=== PATIENT | male | born 1940 | race Caucasian/White ===

== ENCOUNTER → 2018-04-20 | Outpatient (CLI) | payer MEDICARE ==
[~2018-04-20] MED LIST: ALLOPURINOL100 MG PO; ARICEPT5 MG PO; AZITHROMYCIN250 MG PO; BENZONATATE100 MG PO; CARBAMAZEPINE200 MG PO; DICYCLOMINE HCL10 MG PO; IBUPROFEN400 MG PO; OMEPRAZOLE40 MG PO; SIMVASTATIN20 MG PO; TYLENOL WITH C1 EACH PO
--- NOTE | 2018-04-20 15:07 | Diagnostic Imaging Report ---
Exam: SI joints, 3 views or less History: Sacroiliitis Comparison: KUB 04/09/2017 Findings: There is markedly decreased bone mineralization, which limits evaluation of bony structures.. No acute, displaced fracture or dislocation. Stable vertebroplasty changes at L3 and L4. Mild bilateral sacroiliac joint degenerative changes, with presence of small osteophytes in the left SI joint. No lytic lesions. Apparent ossification/fusion of the interspinous ligaments No abnormal soft tissue calcification or soft tissue defect. No soft tissue swelling. Impression: 1. Mild bilateral sacroiliac joint degenerative changes. 2. Ossification/fusion of the interspinous ligaments, which can be seen in ankylosing spondylitis. Signed by: Dr. Bliar Abarca M.D. on 04/20/2018 3:04 PM
== END ==
LOC: RAD 12:11
PROVIDERS: ATTEND Family Medicine
DX: M13.0 Polyarthritis, unspecified (principal); M46.1 Sacroiliitis, not elsewhere classified
CPT/HCPCS: 72200

== ENCOUNTER 2018-04-21 15:23 | Observation (INO) | payer MEDICARE ==
[~2018-04-21] VITALS: Ht 177.8 cm; Wt 79.4 kg
[2018-04-21] MEDS ORDERED: ASPIRIN 81 MG CHEW TAB PO ONE (16:00)
[2018-04-21 16:09] LABS: BASOPHILS % 0.4 % (0.0-1.0); EOSINOPHILS # (AUTO) 0.3 (0.0-0.4); EOSINOPHILS % 2.6 % (0.0-6.0); HEMATOCRIT 36.1 % (38.2-49.6); HEMOGLOBIN 12.4 g/dL (14.0-18.0); LYMPHOCYTES # (AUTO) 1.6 (1.0-3.2); LYMPHOCYTES % 16.2 % (18.0-39.1); MEAN CORPUSCULAR HEMOGLOBIN 30.6 pg (28-32); MEAN CORPUSCULAR HGB CONC 34.3 g/dL (31-35); MEAN CORPUSCULAR VOLUME 89.1 fL (81-99); MONOCYTES # (AUTO) 0.9 (0.2-0.8); MONOCYTES % 9.3 % (4.4-11.3); NEUTROPHILS # (AUTO) 7.2 (2.1-6.9); PLATELET COUNT 237 x10e3/uL (140-360); RED BLOOD COUNT 4.05 x10e6/uL (4.3-5.7); RED CELL DISTRIBUTION WIDTH 13.2 % (11.7-14.4)
[2018-04-21 16:28] LABS: ALANINE AMINOTRANSFERASE 28 IU/L (0-55); ALBUMIN 3.5 g/dL (3.5-5.0); ALBUMIN/GLOBULIN RATIO 1.1 (0.8-2.0); ALKALINE PHOSPHATASE 119 IU/L (40-150); ANION GAP 14.8 mmol/L (8-16); BLOOD UREA NITROGEN 7 mg/dL (7-26); BUN/CREATININE RATIO 10 (6-25); CALCIUM 9.1 mg/dL (8.4-10.2); CARBON DIOXIDE 23 mmol/L (22-29); CHLORIDE 99 mmol/L (98-107); CREATINE KINASE 24 IU/L (30-200); CREATININE, SERUM 0.67 mg/dL (0.72-1.25); EST GLOMERULAR FILTRATION RATE > 60 ML/MIN (60-); GLUCOSE 100 mg/dL (74-118); LIPASE 101 U/L (8-78); POTASSIUM 3.8 mmol/L (3.5-5.1); SODIUM 133 mmol/L (136-145)
--- NOTE | 2018-04-21 17:45 | Diagnostic Imaging Report ---
PROCEDURE:CT CHEST WITH CONTRAST COMPARISON:None. INDICATIONS:LUNG CANCER TECHNIQUE: Axial CT images of the chest were obtained from the lung apices to the upper abdomen. Coronal and sagittal reformations were made available for review. 100 cc of non-ionic contrast was administered. RADIATION DOSE: Total DLP: 565.4 mGy*cm Estimated effective dose: (DLP x 0.014 x size factor) mSv FINDINGS: Lungs: Right lung: Diffusely hyperinflated consistent with COPD. Mild reticulation and paraseptal emphysema at the periphery of the lung. Spiculated soft tissue mass in the medial lung involves the inferior upper lobe, middle lobe, and lower lobe and abuts the mediastinum. This measures approximately 9.0 x 7.3 x 5.5 cm and encases numerous bronchi. There are no satellite nodules. Left lung: Diffusely hyperinflated consistent with COPD with mild paraseptal emphysema. There is atelectasis at the base of the lung. A nodule or focus of atelectasis in the posterior lower lobe measures 4 mm (image 85). Airways: The bronchus intermedius of the right lung is narrowed. The right middle lobe bronchus is occluded by tumor. Pleura:Right pleural effusion measures 4.7 cm and is predominantly posterior with lateral and anterior tracking. No enhancement of the visceral or parietal pleura. No left pleural effusion. No pneumothorax. Lymph nodes: No enlarged axillary or supraclavicular lymph nodes. There is haziness of the mesenteric fat and prominent lymph nodes anterior and posterior to the SVC measuring up to 1.6 cm. There is lymphadenopathy of the right inferior hilum measuring 2.1 cm encasing the upper lobe bronchus. Lymphadenopathy surrounds the bronchus intermedius and right lower lobe bronchus. Subcarinal lymph nodes measure up to 2.8 cm in AP dimension. There is left hilar lymphadenopathy with prominent lymphoid tissue extending along the course of the left main bronchus surrounding the upper and lower lobe bronchi. There are no enlarged cardiophrenic lymph nodes. Heart \T\ Mediastinum:The heart is normal in size with prominent pericardial fat pad. Pericardial effusion is circumferential and measures 11 mm. Vessels:There are no filling defects in the great vessels. Lymphadenopathy surrounds the upper and lower lobe branches on the right pulmonary artery resulting in mild narrowing.. The main pulmonary artery measures 2.6 cm. The ascending aorta measures 3.0 cm. Upper abdomen:The liver is decreased in attenuation suggestive of steatosis. 2 low attenuating lesions in the left lobe measure up to 6 mm and are suggestive of cysts. There are no enhancing hepatic lesions. Visualized portions of the pancreas and spleen demonstrate no evidence of mass. No evidence of adrenal mass. Visualized portions of the kidneys are normal. Musculoskeletal:The bones are diffusely demineralized. There is a compression deformity of T10 of approximately 50%. No retropulsed bone fragments into the spinal canal. A treated compression deformity of L1 is incompletely imaged. There are degenerative changes throughout the spine. There is no evidence of lytic or blastic lesion. CONCLUSION: 1. Large tumor in the right lung centered in the middle lobe with extensive mediastinal lymphadenopathy extending to the left hilum. 2. moderate right pleural effusion and small pericardial effusion as described above. 3. Small focus of atelectasis or nodule in the left lower lobe there is watching to exclude developing metastasis. 4. Low attenuating hepatic lesions have the appearance of cysts. Steatosis. 5. Treated compression deformity of L1. Untreated compression deformity of T10 as described above. Dictated by: Celi De La Cruz M.D. on 04/21/2018 at 17:51 Electronically approved by: Celi De La Cruz M.D. on 04/21/2018 at 17:51
[2018-04-21 18:54] LABS: BILIRUBIN,URINE NEGATIVE (NEGATIVE); CLARITY,URINE SL CLOUDY (CLEAR); COLOR,URINE YELLOW (YELLOW); KETONES,URINE NEGATIVE (NEGATIVE); LEUKOCYTE ESTERASE ,URINE NEGATIVE (NEGATIVE); NITRITE,URINE NEGATIVE (NEGATIVE); PROTEIN,URINE DIPSTICK NEGATIVE (NEGATIVE); URINE UROBILINOGEN 0.2 mg/dL (0.2 - 1)
[2018-04-21 19:04] LABS: BACTERIA,URINE FEW /HPF; EPITHELIAL CELLS,URINE RARE /LPF
[2018-04-21 20:00] VITALS: BP 118/58
[2018-04-21 20:50] VITALS: BP 144/78
[2018-04-21 21:09] VITALS: BP 144/78
[2018-04-21 21:26] VITALS: BP 118/58
[2018-04-21] MEDS ORDERED: AZITHROMYCIN250 MG PO (21:52)
[2018-04-21] MEDS ORDERED: SIMVASTATIN20 MG PO (21:52)
[2018-04-21] MEDS ORDERED: ALLOPURINOL100 MG PO (21:52)
[2018-04-21] MEDS ORDERED: OMEPRAZOLE40 MG PO (21:52)
[2018-04-21] MEDS ORDERED: ARICEPT5 MG PO (21:52)
[2018-04-21] MEDS ORDERED: CARBAMAZEPINE200 MG PO (21:52)
[2018-04-21] MEDS ORDERED: TYLENOL WITH C1 EACH PO (21:52)
[2018-04-21] MEDS ORDERED: IBUPROFEN400 MG PO (21:52)
[2018-04-21] MEDS ORDERED: DICYCLOMINE HCL10 MG PO (21:52)
[2018-04-21] MEDS ORDERED: BENZONATATE100 MG PO (21:52)
[2018-04-21] MEDS ORDERED: IOPAMIDOL 370 MG/ML 200 ML INFUS..BTL INJ ONE (22:25)
[2018-04-21] MEDS ORDERED: SODIUM CHLORIDE 0.9% 50ML 50 ML ONE (22:25)
[2018-04-22] VITALS (8 sets, daily range): BP systolic 98–142; BP diastolic 59–80
[2018-04-22 06:00] LABS: ANION GAP 11.8 mmol/L (8-16); BLOOD UREA NITROGEN 7 mg/dL (7-26); BUN/CREATININE RATIO 11 (6-25); CALCIUM 8.9 mg/dL (8.4-10.2); CARBON DIOXIDE 25 mmol/L (22-29); CHLORIDE 99 mmol/L (98-107); CREATININE, SERUM 0.65 mg/dL (0.72-1.25); EST GLOMERULAR FILTRATION RATE > 60 ML/MIN (60-); GLUCOSE 101 mg/dL (74-118); POTASSIUM 3.8 mmol/L (3.5-5.1); SODIUM 132 mmol/L (136-145)
[2018-04-22] MEDS: SODIUM CHLORIDE 0.9% 1000ML 1,000 ML IV SCH ×2 (06:45→20:23)
[2018-04-22] MEDS: SODIUM CHLORIDE 1 GM TAB PO SCH ×2 (08:45→16:11)
[2018-04-22] MEDS: ALLOPURINOL 100 MG TAB PO SCH (08:45)
[2018-04-22] MEDS: DICYCLOMINE HCL 10 MG CAP PO SCH (08:45)
[2018-04-22] MEDS: IBUPROFEN 400 MG TAB PO SCH ×2 (08:45→21:09)
[2018-04-22] MEDS: CARBAMAZEPINE 200 MG TAB PO SCH ×3 (08:45→21:09)
[2018-04-22] MEDS: BENZONATATE 100 MG CAP PO SCH ×3 (08:45→21:09)
[2018-04-22] MEDS: PANTOPRAZOLE SOD 40 MG TABEC PO SCH (08:45)
[2018-04-22] MEDS ORDERED: SIMVASTATIN 20 MG TAB PO SCH (21:00)
[2018-04-22] MEDS: ALBUTEROL/IPRATROPIUM 3 ML NEB NEB SCH (21:00)
[2018-04-22] MEDS ORDERED: DONEPEZIL HCL 5 MG TAB PO SCH (21:00)
--- NOTE | 2018-04-22 21:00 | Consultation ---
DATE OF CONSULTATION: PULMONARY CONSULTATION REASON FOR THE CONSULT: Abnormal chest CT and shortness of breath. HPI: Mr. Kay is a 77-year-old male, well known to me from my office visit. Patient has history of lung cancer and being treated by Dr. Pandey. He came in because his sodium was low and he was having shortness of breath. Patient is getting radiation and chemotherapy at Dr. Pandey's office. He is currently denying any complaints of chest pain. He has shortness of breath. REVIEW OF SYSTEMS: GENERAL: Denies any fever or chills. HEAD: Denies any head trauma. ENT: Denies any earache. CVS: Denies any chest pain. RESPIRATORY: Shortness of breath. The rest of the review of systems are negative except as in HPI. PAST MEDICAL HISTORY: Adenocarcinoma of the lung, hyperlipidemia, hypertension. PAST SURGICAL HISTORY: Vertebroplasty, rhinoplasty, hernia repair, rotator cuff. FAMILY AND SOCIAL HISTORY: He is an ex-smoker. Does not smoke anymore. . Lives with his . PHYSICAL EXAMINATION: VITAL SIGNS: Temperature 97.8, pulse is 78, blood pressure 117/59, respiratory rate of 18, O2 sat 96% on room air. HEENT: Head atraumatic, normocephalic. Pupils are reactive. NECK: Supple. CHEST: Wheezing bilaterally, more on the right side. HEART: S1 and S2 audible. ABDOMEN: Soft, nontender, nondistended. EXTREMITIES: No clubbing, cyanosis, or edema. NEUROLOGICAL: Awake, alert. No focal neurologic deficit. CT chest, I have reviewed the images. There is a large right-sided tumor which is significantly enlarging than previous CTs which I have reviewed in the office. He has large right-sided pleural effusion as well. LABS: White count of 10,000; hemoglobin 12.4; platelets 237,000. Chemistry, sodium 131. ASSESSMENT AND PLAN: Mr. Kay is a 77-year-old male who has adenocarcinoma of the lung. The tumor has enlarged on the computerized axial tomography scan. Patient is having wheezing. He also has right-sided pleural effusion. CURRENT PROBLEMS: 1. Adenocarcinoma of the lung. 2. Right-sided pleural effusion. 3. Chronic obstructive pulmonary disease. PLAN: 1. I will start the patient on nebulizer treatment. 2. IV steroids. 3. Thoracentesis for symptomatic relief. 4. Dr. Pandey will be evaluating the patient as an outpatient for the treatment of tumor. I will defer the treatment of malignancy to oncology. Discussion was done with patient's and son at bedside in detail. Job#: [id number]
[2018-04-22] MEDS: METHYLPREDNISOLONE SOD SUCC 40 MG/ML VIAL IV SCH (21:09)
[2018-04-23] VITALS: BP 103/57
[2018-04-23] MEDS: ALBUTEROL/IPRATROPIUM 3 ML NEB NEB SCH ×3 (01:00→13:55)
[2018-04-23 04:00] VITALS: BP 145/63
[2018-04-23 05:22] LABS: BASOPHILS % 0.2 % (0.0-1.0); EOSINOPHILS % 0.2 % (0.0-6.0); HEMATOCRIT 32.7 % (38.2-49.6); LYMPHOCYTES # (AUTO) 0.7 (1.0-3.2); LYMPHOCYTES % 10.2 % (18.0-39.1); MEAN CORPUSCULAR HEMOGLOBIN 30.6 pg (28-32); MEAN CORPUSCULAR HGB CONC 33.6 g/dL (31-35); MEAN CORPUSCULAR VOLUME 90.8 fL (81-99); MONOCYTES # (AUTO) 0.3 (0.2-0.8); NEUTROPHILS # (AUTO) 5.5 (2.1-6.9); NEUTROPHILS % 83.8 % (38.7-80.0); PLATELET COUNT 241 x10e3/uL (140-360); RED CELL DISTRIBUTION WIDTH 13.2 % (11.7-14.4)
[2018-04-23] MEDS: METHYLPREDNISOLONE SOD SUCC 40 MG/ML VIAL IV SCH ×2 (05:47→11:26)
[2018-04-23 06:01] LABS: BLOOD UREA NITROGEN 5 mg/dL (7-26); BUN/CREATININE RATIO 9 (6-25); CALCIUM 8.6 mg/dL (8.4-10.2); CARBON DIOXIDE 22 mmol/L (22-29); CHLORIDE 100 mmol/L (98-107); CREATININE, SERUM 0.57 mg/dL (0.72-1.25); EST GLOMERULAR FILTRATION RATE > 60 ML/MIN (60-); GLUCOSE 126 mg/dL (74-118); SODIUM 129 mmol/L (136-145)
[2018-04-23] MEDS ORDERED: BUDESONIDE 0.5MG/2 ML NEB INH SCH (07:00)
[2018-04-23] MEDS: PANTOPRAZOLE SOD 40 MG TABEC PO SCH ×2 (07:30→08:48)
[2018-04-23 08:27] VITALS: BP 147/69
[2018-04-23] MEDS: IBUPROFEN 400 MG TAB PO SCH (08:48)
[2018-04-23] MEDS: ALLOPURINOL 100 MG TAB PO SCH (08:48)
[2018-04-23] MEDS: BENZONATATE 100 MG CAP PO SCH (08:48)
[2018-04-23] MEDS: DICYCLOMINE HCL 10 MG CAP PO SCH (08:48)
[2018-04-23] MEDS: SODIUM CHLORIDE 1 GM TAB PO SCH (08:48)
[2018-04-23] MEDS: CARBAMAZEPINE 200 MG TAB PO SCH (08:48)
[2018-04-23 09:00] LABS: INR 1.16; PROTHROMBIN TIME 13.9 seconds (11.9-14.5)
[2018-04-23 09:22] VITALS: BP 147/69
[2018-04-23] MEDS: SODIUM CHLORIDE 0.9% 1000ML 1,000 ML IV SCH (09:25)
[2018-04-23 12:18] VITALS: BP 137/73
--- NOTE | 2018-04-23 13:01 | Diagnostic Imaging Report ---
EXAMINATION: CHEST XRAY POST PROCEDURE INDICATION: Status post right thoracentesis COMPARISON: Chest CT 04/21/18. FINDINGS: TUBES and LINES: None. LUNGS: Lungs are well inflated. Opacity in the right middle lobe corresponding to the known right perihilar mass. The left lung is clear. No evidence of pulmonary edema. PLEURA: Interval resolution of right sided pleural effusion. No evidence of pneumothorax. HEART AND MEDIASTINUM: The cardiomediastinal silhouette is unchanged. BONES AND SOFT TISSUES: No acute osseous lesion. Soft tissues are unremarkable. UPPER ABDOMEN: No free air under the diaphragm. IMPRESSION: Status post right thoracentesis with resolution of right pleural effusion and no evidence of pneumothorax. Right perihilar mass with middle lobe atelectasis, better characterized on chest CT from 04/21/18. Signed by: Dr. Divina Jansen MD on 04/23/2018 12:57 PM
--- NOTE | 2018-04-23 13:40 | Diagnostic Imaging Report ---
Procedure: Ultrasound-guided right diagnostic and therapeutic thoracentesis terminal computer operator: Dr. Divina Jansen Pre-operative diagnosis: Right pleural effusion Post-operative diagnosis: Right pleural effusion Conscious Sedation: The patient's heart rate and pulse oximetry were continuously monitored by the IR nurse. Blood pressure was monitored at 5 minute intervals. Additional Medications: Lidocaine 1% for local anesthesia Estimated blood loss: Minimal Specimens: 1000 cc serosanguinous pleural fluid Implants: None DISCUSSION: Informed consent was obtained from the patient and documented in the medical record. The patient was placed in the upright position. The right posterior chest was prepped and draped in standard sterile fashion. 1% lidocaine was infiltrated into the skin and subcutaneous tissues for local anesthesia. Then under continuous sonographic guidance a 5 Fr catheter was advanced into the right pleural space. The catheter was advanced off the needle and connected to vacuum bottle with subsequent evacuation of 1000 of serosanguinous fluid. The catheter was removed and a sterile, occlusive dressing was applied. Sample was sent to the lab. The patient tolerated the procedure well. FINDINGS: Moderate to large right pleural effusion. IMPRESSION: Ultrasound-guided diagnostic and therapeutic right thoracentesis with evacuation of 1000 cc of serosanguinous fluid. Signed by: Dr. Divina Jansen MD on 04/23/2018 1:36 PM
[2018-04-23 13:59] LABS: BODY FLUID APPEARANCE CLOUDY; BODY FLUID COLOR STRAW; BODY FLUID TYPE PLEURAL; RBC,BODY FLUID 2062 cells/uL; WBC,BODY FLUID 396 cells/uL
[2018-04-23 15:03] LABS: LYMPHOCYTES,BODY FLUID 87 %; MONO/MACROPHG,BODY FLUID 6 %; NEUTROPHILS,BODY FLUID 7 %
== END 2018-04-23 14:19 | disposition home or self-care (01) ==
LOC: ER 15:23 → IMCU 20:33
PROVIDERS: ADMIT Family Medicine; ATTEND Family Medicine
DX: E87.1 Hypo-osmolality and hyponatremia (principal); J90 Pleural effusion, not elsewhere classified; Z88.0 Allergy status to penicillin; D63.8 Anemia in other chronic diseases classified elsewhere; C34.2 Malignant neoplasm of middle lobe, bronchus or lung; I31.3 Pericardial effusion (noninflammatory); J44.9 Chronic obstructive pulmonary disease, unspecified; K21.9 Gastro-esophageal reflux disease without esophagitis; G30.9 Alzheimer's disease, unspecified; F02.80 Dementia in other diseases classified elsewhere, unspecified severity, without behavioral disturbance, psychotic disturbance, mood disturbance, and anxiety; E78.5 Hyperlipidemia, unspecified; Z87.442 Personal history of urinary calculi; Z87.891 Personal history of nicotine dependence
CPT/HCPCS: 32555 ×2; 36415 ×3; 71045; 71260; 74470; 80048 ×2; 80053; 81001; 82550; 82553; 83615; 83690; 84484; 85025 ×2; 85610; 85730; 87040; 89051; 94640 ×3; 96361; 99284; G0378 ×3; J2920 ×2; J7030; Q9967; S0164 ×2

== ENCOUNTER 2018-05-17 16:18 | Observation (INO) | payer MEDICARE ==
[~2018-05-17] VITALS: Ht 177.8 cm; Wt 74.0 kg
[2018-05-17 17:33] LABS: BASOPHILS % 0.8 % (0.0-1.0); EOSINOPHILS # (AUTO) 0.1 (0.0-0.4); EOSINOPHILS % 2.3 % (0.0-6.0); HEMOGLOBIN 10.3 g/dL (14.0-18.0); LYMPHOCYTES # (AUTO) 0.5 (1.0-3.2); LYMPHOCYTES % 13.3 % (18.0-39.1); MEAN CORPUSCULAR HEMOGLOBIN 30.4 pg (28-32); MEAN CORPUSCULAR HGB CONC 34.3 g/dL (31-35); MEAN CORPUSCULAR VOLUME 88.5 fL (81-99); MONOCYTES # (AUTO) 0.3 (0.2-0.8); MONOCYTES % 7.8 % (4.4-11.3); NEUTROPHILS % 74.5 % (38.7-80.0); PLATELET COUNT 336 x10e3/uL (140-360); RED BLOOD COUNT 3.39 x10e6/uL (4.3-5.7); RED CELL DISTRIBUTION WIDTH 13.4 % (11.7-14.4)
[2018-05-17 17:40] LABS: INR 1.17; PARTIAL THROMBOPLASTIN TIME 30.1 seconds (23.8-35.5)
[2018-05-17 17:47] LABS: ALANINE AMINOTRANSFERASE 28 IU/L (0-55); ALBUMIN 3.4 g/dL (3.5-5.0); ALBUMIN/GLOBULIN RATIO 1.2 (0.8-2.0); ALKALINE PHOSPHATASE 139 IU/L (40-150); ANION GAP 15.4 mmol/L (8-16); BLOOD UREA NITROGEN 8 mg/dL (7-26); BUN/CREATININE RATIO 14 (6-25); CALCIUM 8.9 mg/dL (8.4-10.2); CARBON DIOXIDE 23 mmol/L (22-29); CHLORIDE 92 mmol/L (98-107); CREATININE, SERUM 0.59 mg/dL (0.72-1.25); EST GLOMERULAR FILTRATION RATE > 60 ML/MIN (60-); GLUCOSE 102 mg/dL (74-118); POTASSIUM 4.4 mmol/L (3.5-5.1); SODIUM 126 mmol/L (136-145)
--- NOTE | 2018-05-17 18:58 | Diagnostic Imaging Report ---
EXAMINATION: CHEST SINGLE (PORTABLE) INDICATION: \S\pleural effusion \[id number] \S\[id number] \S\Y COMPARISON: 04/23/2018 FINDINGS: AP view TUBES and LINES: None. LUNGS and PLEURA: Moderate interstitial edema. Moderate size right pleural effusion and suspected trace left pleural effusion. HEART AND MEDIASTINUM: The cardiomediastinal silhouette is unremarkable. BONES AND SOFT TISSUES: No acute osseous lesion. Left humeral head anchor screws. Soft tissues are unremarkable. UPPER ABDOMEN: No free air under the diaphragm. IMPRESSION: Moderate pulmonary edema. Moderate size right pleural effusion. Signed by: Dr. John Norman MD on 05/17/2018 6:54 PM
[2018-05-17] MEDS ORDERED: MORPHINE SULFATE 2 MG/ML SYR IV PRN (19:30)
[2018-05-17] MEDS ORDERED: SODIUM CHLORIDE FLUSH 10 ML SYR INJ PRN (19:30)
[2018-05-17] MEDS ORDERED: ONDANSETRON HCL INJ 2 MG/ML VIAL IV PRN (19:30)
[2018-05-17] MEDS ORDERED: ALBUTEROL SULF 0.083% NEB SOLN 3 ML NEB NEB PRN (20:45)
--- NOTE | 2018-05-17 21:56 | History and Physical ---
CHIEF COMPLAINT: This patient came in with complaint of pleural effusion and "I was sent in by hospice for pleural tap." HISTORY OF PRESENTING ILLNESS: This is Mr. Kay with end-stage lung cancer, who was in usual state of health until he was supposed to be admitted to hospice today, but has pleural effusion, had come back patient had a tap and also had low sodium and the patient is here back for a Clarington catheter and to be discharged after that. MEDICATIONS: Include allopurinol 300 mg daily. He is on Z-JOHAN , carbamazepine 200 mg 3 times a day, Aricept 5 mg once a day, ibuprofen 400 mg q.12h., omeprazole 40 mg, and simvastatin 20 mg. MEDICAL HISTORY: Includes: 1. Cancer. 2. Dementia. 3. History of gout secondary to several loads and also cough and hyponatremia. REVIEW OF SYSTEMS: Negative for chest pain. Positive for shortness of breath. No nausea, vomiting, diarrhea. No constipation, no rectal bleeding. No hematochezia. PHYSICAL EXAMINATION: GENERAL: Patient is alert and oriented x1, in and out of confusion. HEENT: Normocephalic, atraumatic. CVS: S1 and S2 normal. Regular rhythm. LUNGS: Right lower lung field with dullness and also with decreased air flow. Left side is normal. ABDOMEN: Nontender, nondistended. EXTREMITIES: No clubbing, no cyanosis, no edema. LABORATORY VALUES: Initial laboratory values, white count of 3.9, hemoglobin of 10.3, hematocrit of 30.0, lymphocyte count of 13.3. Chemistry: Sodium 126, chloride 92, creatinine 0.59. Coags were normal. IMAGING STUDIES: Chest x-ray shows right-sided pleural effusion and moderate pulmonary edema. ASSESSMENT: Lung cancer with pleural effusion and possibly post obstructive pleural effusion. PLAN: To put in the Clarington catheter. IR was also consulted. For his hyponatremia, will continue monitoring and possibly will give some Lasix right now. Further recommendations on clinical course, and the patient can be discharged back, and admitted back into hospice after Clarington catheter. Discussed with family, 2 sons and at bedside. For further information, look in the chart. Will continue to monitor the patient. Further recommendations on clinical course. Job#: [id number]
[2018-05-17 22:40] VITALS: BP 146/71
[2018-05-17 23:59] VITALS: BP 146/71
[2018-05-18] MEDS: ALBUTEROL SULF 0.083% NEB SOLN 3 ML NEB NEB SCH ×3 (01:35→13:00)
[2018-05-18 04:57] VITALS: BP 133/88
[2018-05-18 08:15] VITALS: BP 136/56
[2018-05-18] MEDS ORDERED: LIDOCAINE HCL 1% LOCAL INJ 20 ML VIAL ONE (15:42)
--- NOTE | 2018-05-18 16:48 | Diagnostic Imaging Report ---
EXAMINATION: CHEST XRAY POST PROCEDURE INDICATION: \S\sp rt thoracenthesis pleural effusion drain lung ca COMPARISON: Chest x-ray 05/17/2018. Thoracentesis 05/18/2018. FINDINGS: AP view TUBES and LINES: None. LUNGS: Lungs are moderately inflated. There are bibasilar atelectasis. There is mild prominence of the central pulmonary vasculature, consistent with pulmonary venous congestion. PLEURA: Decreased moderate right pleural effusion, now a small right pleural effusion. No pneumothorax. HEART AND MEDIASTINUM: The cardiomediastinal silhouette is unremarkable. BONES AND SOFT TISSUES: No acute osseous lesion. Soft tissues are unremarkable. UPPER ABDOMEN: No free air under the diaphragm. IMPRESSION: Decrease right moderate pleural effusion, now small. No pneumothorax. Signed by: Dr. Cecilio Vela M.D. on 05/18/2018 4:44 PM
--- NOTE | 2018-05-21 08:28 | Diagnostic Imaging Report ---
PROCEDURE: ULTRASOUND GUIDED THORACENTESIS COMPARISON: None. INDICATIONS:RIGHT PLEURAL EFFUSION FINDINGS: After informed consent was obtained, the patient was placed in the sitting position and preliminary ultrasound of the posterior chest identified a safe route into the right pleural effusion. The overlying skin was prepped and draped in usual sterile fashion. Lidocaine 1% was used for local anesthesia. Under ultrasound guidance, a centesis needle was advanced into the pleural fluid and 1200 cc of fluid was aspirated. The catheter was removed. The patient tolerated the procedure well and there were no immediate post-procedural complications. A post-thoracentesis chest radiograph will be obtained. CONCLUSION: Uncomplicated ultrasound-guided right thoracentesis with removal of 1200 cc of fluid. PLAN: After further discussion with the team and family, patient will be scheduled for tunneled PleurX catheter placement after re-accumulation of right pleural effusion. Dictated by: GUSTAVO ALBARADO M.D. on 05/21/2018 at 8:35 Electronically approved by: GUSTAVO ALBARADO M.D. on 05/21/2018 at 8:35
== END 2018-05-18 19:33 | disposition home or self-care (01) ==
LOC: ER 16:18 → ERHOLD 20:16 → MED/SURG2 22:39
PROVIDERS: ADMIT Family Medicine; ATTEND Family Medicine
DX: C34.90 Malignant neoplasm of unspecified part of unspecified bronchus or lung (principal); J91.8 Pleural effusion in other conditions classified elsewhere; E87.1 Hypo-osmolality and hyponatremia; F03.90 Unspecified dementia, unspecified severity, without behavioral disturbance, psychotic disturbance, mood disturbance, and anxiety; E78.5 Hyperlipidemia, unspecified; F17.210 Nicotine dependence, cigarettes, uncomplicated
CPT/HCPCS: 32555 ×2; 36415; 51700; 71045 ×2; 74470; 80053; 85025; 85610; 85730; 94640 ×3; 99284; G0378 ×2; J2001; J2270; J2405

== ENCOUNTER → 2018-05-21 | Outpatient (CLI) | payer MEDICARE ==
--- NOTE | 2018-05-21 08:54 | Diagnostic Imaging Report ---
PROCEDURE:US CHEST TECHNIQUE: A focused ultrasound of the right chest was performed to evaluate for the presence of effusion prior to planned tunneled pleural catheter placement. COMPARISON:None. INDICATIONS:Not provided. FINDINGS: Focused ultrasound of the right hemithorax was performed. This demonstrated a small pleural effusion on upright views posteriorly but no significant effusion on supine view anteriorly. No evidence of pleural effusion in the left chest. CONCLUSION: Small right pleural effusion. The effusion is too small for tunneled pleural catheter placement at this time. No evidence of left sided effusion. PLAN: IR will notify the primary team. Patient may return as an outpatient possibly after 2 weeks to allow re-accumulation of the effusion prior to catheter placement. Dictated by: GUSTAVO ALBARADO M.D. on 05/21/2018 at 9:01 Electronically approved by: GUSTAVO ALBARADO M.D. on 05/21/2018 at 9:01
== END ==
LOC: CATH LAB 07:44
PROVIDERS: ATTEND Family Medicine
DX: J90 Pleural effusion, not elsewhere classified (principal)
CPT/HCPCS: 76604